=== PATIENT | male | born 1970 | race Caucasian/White ===

== ENCOUNTER 2021-04-12 00:02 | Inpatient (IN) | payer OTHER ==
[~2021-04-12] VITALS: Ht 182.9 cm; Wt 111.1 kg
[2021-04-12 00:52] LABS: HEMOGLOBIN 15.1 gm/dl (14.0-17.5); RED BLOOD COUNT 4.92 M/UL (4.20-5.50); WHITE BLOOD COUNT 6.5 K/UL (4.5-11.0)
[2021-04-12] MEDS ORDERED: METOPROLOL SUCC25 MG PO (04:47)
--- NOTE | 2021-04-13 05:16 | NUR ---
PATIENT ARRIVED TO THE FLOOR AT 2144
[2021-04-13 08:15] LABS: RED BLOOD COUNT 5.14 M/UL (4.20-5.50); WHITE BLOOD COUNT 6.5 K/UL (4.5-11.0)
--- NOTE | 2021-04-13 19:12 | NUR ---
patient had a nose bleed during change of shift report. dr Proctor was notified came to the floor and said to start heparin drip D/T in crease in troponin levels the the benefits out weigh the risks. heparin drip was started and i will continue to monitor and assess the patient. WILL NOTIFIY PROVIDER WITH ANY CHANGES IN CONDITION.
[2021-04-14 01:37] LABS: RED BLOOD COUNT 4.65 M/UL (4.20-5.50); WHITE BLOOD COUNT 7.6 K/UL (4.5-11.0)
--- NOTE | 2021-04-14 03:49 | NUR ---
contacted lab @ 0130 regarding ptt results not available. The order to draw the ptt labs was for 0030. lab stated they only had two people working and they were swamped. @0204 results were in and heparin drip was adjusted.
[2021-04-14] MEDS ORDERED: GABAPENTIN300 MG PO (04:47)
[2021-04-14] MEDS ORDERED: NEXIUM20 MG PO (11:50)
[2021-04-14] MEDS ORDERED: INVANZ 1 GM VIAL1 GM IV (17:24)
[2021-04-14] MEDS ORDERED: DOXYCYCLINE HY100 M2 PO (17:24)
[2021-04-14] MEDS ORDERED: LO-DOSE ASPIRIN81 MG PO (17:25)
[2021-04-14] MEDS ORDERED: HEPARIN-1/25000 UNIT IV (17:31)
[2021-04-14] MEDS ORDERED: NITROSTAT0.4 MG SL (17:32)
[2021-04-14] MEDS ORDERED: LIPITOR40 MG PO (17:32)
== END 2021-04-14 19:15 | disposition short-term general hospital (02) | DRG 280 ==
LOC: ER1 00:02 → CDU 01:54 → PROG CARE 01:54 → M/S 01:54 → PROG CARE 05:03 → M/S 21:48
PROVIDERS: Internal Medicine; Physician Assistant Medical; ADMIT Internal Medicine
PROC: B24BZZZ Ultrasonography of Heart with Aorta (ICD-10-PCS; principal; 2021-04-12)
DX: I21.4 Non-ST elevation (NSTEMI) myocardial infarction (principal); J18.9 Pneumonia, unspecified organism; N17.9 Acute kidney failure, unspecified; Z20.822 Contact with and (suspected) exposure to COVID-19; E11.22 Type 2 diabetes mellitus with diabetic chronic kidney disease; I12.9 Hypertensive chronic kidney disease with stage 1 through stage 4 chronic kidney disease, or unspecified chronic kidney disease; N18.30 Chronic kidney disease, stage 3 unspecified; I08.0 Rheumatic disorders of both mitral and aortic valves; I44.7 Left bundle-branch block, unspecified; I25.10 Atherosclerotic heart disease of native coronary artery without angina pectoris; K21.9 Gastro-esophageal reflux disease without esophagitis; I45.81 Long QT syndrome; E11.40 Type 2 diabetes mellitus with diabetic neuropathy, unspecified; Z79.4 Long term (current) use of insulin; Z79.82 Long term (current) use of aspirin; Z82.49 Family history of ischemic heart disease and other diseases of the circulatory system; Z80.41 Family history of malignant neoplasm of ovary
CPT/HCPCS: ECHO; 36415; 71045; 71046; 80053; 80061; 82550; 82553; 82565; 83874; 83880; 84484; 85025; 85027; 85610; 85730; 93005; 93306; 99285; J1335; J1644; J1940; U0002

== ENCOUNTER → 2022-02-09 | Outpatient (CLI) | payer OTHER ==
[~2022-02-09] MED LIST: DOXYCYCLINE HY100 M2 PO; GABAPENTIN300 MG PO; HEPARIN-1/25000 UNIT IV; INVANZ 1 GM VIAL1 GM IV; LIPITOR40 MG PO; LO-DOSE ASPIRIN81 MG PO; METOPROLOL SUCC25 MG PO; NEXIUM20 MG PO; NITROSTAT0.4 MG SL
== END ==
LOC: KOH-I 14:55
DX: I13.0 Hypertensive heart and chronic kidney disease with heart failure and stage 1 through stage 4 chronic kidney disease, or unspecified chronic kidney disease (principal); I50.22 Chronic systolic (congestive) heart failure; N18.31 Chronic kidney disease, stage 3a; E78.5 Hyperlipidemia, unspecified
CPT/HCPCS: 76775